=== PATIENT | female | born 1975 | race Two or more races ===

== ENCOUNTER → 2016-12-16 | Outpatient (REF) | payer BC | LOC: M LAB REF 13:29 | PROVIDERS: ATTEND Nurse Practitioner Family | DX: R31.9 Hematuria, unspecified (principal) ==

== ENCOUNTER → 2016-12-30 | Outpatient (CLI) | payer BC ==
--- NOTE | 2016-12-30 15:42 | REP ---
Clinical: Hematuria. Comparison: 10/14/2014. Findings: Lung bases are clear. Visualized heart and pericardium normal. Fatty infiltration to the liver noted without focal hepatic lesion. Spleen, pancreas, bilateral adrenal glands and kidneys are normal for noncontrast evaluation. Incidental note is made of a 1 mm nonobstructing left renal calculus (image [id number]). The enteric system is without obstruction or acute inflammatory process. A 4.5 cm fat containing ventral hernia is identified along with chronic fat-stranding. Pelvis demonstrates normal bladder and age-appropriate uterus/adnexa with tubal ligation. Rectosigmoid appears normal. No ascites. No free air. No adenopathy. Abdominal aorta without aneurysm. Musculoskeletal structures are intact. Impression: 1 mm nonobstructing left renal calculus. 4.5 cm fat containing ventral hernia similar to 2014. Signed by Adonay Elaine MD 12/30/2016 03:32 P
== END ==
LOC: M RAD 14:14
PROVIDERS: ATTEND Nurse Practitioner Family
DX: R31.9 Hematuria, unspecified (principal); K43.9 Ventral hernia without obstruction or gangrene; N20.0 Calculus of kidney

== ENCOUNTER → 2017-01-09 | Outpatient (REF) | payer BC | LOC: M SMT 17:32 | PROVIDERS: ATTEND Nurse Practitioner Women's Health | DX: R10.9 Unspecified abdominal pain (principal) ==

== ENCOUNTER → 2018-11-08 | Outpatient (CLI) | payer OTHER ==
--- NOTE | 2018-11-09 15:48 | REP ---
Clinical: Lower back pain. Technique: AP, lateral, bilateral oblique and coned-down views of the lumbosacral spine. Findings: Vertebral bodies are intact and there is no evidence for acute fracture / compression injury. Minimal multilevel endplate sclerosis with subtle disc space narrowing is appreciated along with presumed chronic 1.5 mm anterolisthesis at the L4-5 level with hypertrophic facet changes. Chronic L5 spondylolysis without spondylolisthesis cannot be excluded as well. Impression: Multilevel degenerative changes as noted above. If the patient remains symptomatic consider MRI for further investigation. Electronically Signed by Adonay Elaine MD 11/09/2018 03:39 P
== END ==
LOC: M RAD 10:03
PROVIDERS: ATTEND Physician Assistant
DX: M51.36 Other intervertebral disc degeneration, lumbar region (principal)

== ENCOUNTER → 2019-07-10 | Outpatient (REF) | payer BC, OTHER ==
[2019-07-10 13:23] LABS: MALB URINE SIEMENS 26.3 MG/L; MAU/CREAT RATIO 7.4 MCG/MG (0.0-30.0)
== END ==
LOC: M LAB REF 12:04
PROVIDERS: ATTEND Nurse Practitioner Family
DX: E11.65 Type 2 diabetes mellitus with hyperglycemia (principal)

== ENCOUNTER → 2020-11-06 | Outpatient (CLI) | payer BC ==
--- NOTE | 2020-11-09 15:25 | SLEEPCENT ---
NOCTURNAL POLYSOMNOGRAPHY DATE: 11/06/2020 ORDERED BY: ROBERT Watkins Nocturnal polysomnography was performed for evaluation of sleep physiology in this patient with a history of excessive somnolence and nonrestorative sleep. 8 hours and 10 minutes of data were reviewed. There were 333 minutes of sleep identified. Sleep latency was normal at 19.5 minutes. REM latency was normal at 115.5 minutes. Sleep architecture showed fragmentation, poor progression, and periods of wake. There were three REM cycles noted. Overall sleep efficiency was 69.3%. The patient's electrocardiogram showed a sinus rhythm with a heart rate of 100 beats per minute on average; rate range 85 to 110. EEG showed normal waveforms for wake and sleep. There were 325 respiratory events identified of 10 seconds in duration or greater for an apnea-hypopnea index of 58.6. The events were primarily obstructive, not exclusive to sleep stage nor body posture. Arousals from respiratory events occurred 14.2 times per hour and oxygen desaturations were seen into the low 80s. IMPRESSION: Obstructive sleep apnea syndrome (G47.33), apnea-hypopnea index 58.6. RECOMMENDATION: The patient should be encouraged to return to [facility]. In the interim, alcohol and sedative avoidance should be practiced and caution exercised during the operation of motor vehicles.
== END ==
LOC: M SLEEP 20:00
PROVIDERS: ATTEND Nurse Practitioner Family
DX: R06.83 Snoring (principal)

== ENCOUNTER → 2020-12-15 | Outpatient (CLI) | payer BC ==
--- NOTE | 2020-12-16 13:34 | SLEEPCENT ---
DATE: 12/15/2020 ORDERED BY: ROBERT Watkins Nocturnal polysomnography was performed for the titration of pressure therapy in this patient with obstructive sleep apnea syndrome, apnea-hypopnea index of 58.6. For testing a [employer]Med Airfit F20 full face mask of medium size was used, 4 cm of water pressure were applied to the circuit, and the lights were extinguished. Eight hours and 19 minutes of data were reviewed. There were 323.5 minutes of sleep identified. Sleep latency was mildly prolonged at 43.5 minutes. REM sleep was further delayed at 346 minutes. Sleep architecture showed some poor progression early in the study. Improvement was noted late in the test and there was one REM cycle. Overall sleep efficiency was 65.7%. The electrocardiogram showed a sinus rhythm with an average heart rate of 90 beats per minute. Rate ranged 80-100. EEG showed normal waveforms for wake and sleep. Respiratory events were fully palliated with CPAP at a pressure of +7. There was some minor limb activity and the remaining measures of sleep physiology were normal. IMPRESSION: Obstructive sleep apnea syndrome (G47.33). RECOMMENDATION: Nightly use of pressure therapy 7 cm of water. cc: MIKE BARLOW M.D. [facility]
== END ==
LOC: M SLEEP 20:00
PROVIDERS: ATTEND Nurse Practitioner Family
DX: G47.33 Obstructive sleep apnea (adult) (pediatric) (principal)